=== PATIENT | male | born 1980 | race Caucasian/White ===

== ENCOUNTER 2020-01-28 19:44 | Emergency (ER) | payer OTHER ==
[~2020-01-28] VITALS: Ht 188 cm; Wt 87.5 kg
== END 2020-01-28 22:30 | disposition home or self-care (01) ==
LOC: ER 19:44
DX: S30.0XXA Contusion of lower back and pelvis, initial encounter (principal); V19.9XXA Pedal cyclist (driver) (passenger) injured in unspecified traffic accident, initial encounter; Y93.89 Activity, other specified; Y92.89 Other specified places as the place of occurrence of the external cause; Y99.8 Other external cause status

== ENCOUNTER 2021-05-24 08:41 | Outpatient (CLI) | payer OTHER | END 2021-05-24 08:44 | disposition home or self-care (01) | LOC: NUCLEAR 08:41 | PROVIDERS: ATTEND Internal Medicine Cardiovascular Disease | DX: I87.2 Venous insufficiency (chronic) (peripheral) (principal) ==

== ENCOUNTER 2021-05-25 07:15 | Outpatient (CLI) | payer OTHER | END 2021-05-25 07:37 | disposition home or self-care (01) | LOC: MAMO-SONO 07:15 → SONOGRAMA 07:15 → RAD 07:15 | PROVIDERS: ATTEND Internal Medicine Cardiovascular Disease | DX: R10.9 Unspecified abdominal pain (principal) ==